=== PATIENT | female | born 1980 | race Caucasian/White ===

== ENCOUNTER 2017-03-19 06:13 | Emergency (ER) | payer BC ==
[~2017-03-19] VITALS: Ht 162.5 cm; Wt 117.9 kg
[~2017-03-19 06:13] MED LIST: AMOXICILLIN500 MG PO; ANAPROX275 MG PO; AUGMENTIN 875875 MG PO; BACTRIM DS 8001 TA1 PO; BACTROBAN2% TP; BIAXIN500 MG PO; CALCIUM 500 W/V1 TAB PO; CIPRO500 MG PO; CLARITIN10 MG PO; CYCLOBENZAPRINE10 MG PO; DIAZEPAM2 MG PO; DIFLUCAN150 MG PO; FE-TABS325 MG PO; IBUPROFEN600 MG PO; LIDEX0.05% T; MACROBID100 M1 PO; MOTRIN800 MG PO; NAPROSYN500 MG PO; PREDNICOT20 MG PO; PRENATAL1 TA4 PO; ROBAXIN500 MG PO; TRAMADOL HCL50 MG PO; ULTRAM50 MG PO; ZITHROMAX Z PA250 MG PO
[2017-03-19] MEDS ORDERED: ATARAX,VISTARIL50 MG PO (06:49)
[2017-03-19] MEDS ORDERED: PREDNISONE20 M1 PO (06:49)
== END 2017-03-19 06:53 | disposition home or self-care (01) ==
LOC: ED 06:13
DX: L25.5 Unspecified contact dermatitis due to plants, except food (principal)

== ENCOUNTER 2021-02-21 13:27 | Emergency (ER) | payer BC ==
[~2021-02-21] VITALS: Ht 160 cm; Wt 102.1 kg
[~2021-02-21 13:27] MED LIST changes: +ATARAX,VISTARIL50 MG PO; +PREDNISONE20 M1 PO
[2021-02-21 15:01] LABS: BASO % 0.3 % (0.0-1.0); EOS # 0.1 10*3/uL (0.0-0.4); EOS % 1.1 % (1.0-4.0); HEMATOCRIT 32.1 % (37.0-47.0); LYMPH # 1.9 10*3/uL (1.3-4.4); LYMPH % 20.6 % (27.0-41.0); MEAN CELL VOLUME 78.7 fl (81.0-99.0); MEAN CORPUSCULAR HGB CONC 29.3 g/dl (33.0-37.0); MONO # 0.5 10*3/uL (0.1-1.0); MONO % 5.3 % (3.0-9.0); NEUT # 6.6 10*3/uL (2.3-7.9); NEUT % 72.5 % (47.0-73.0); PLATELET COUNT AUTOMATED 349 10*3/uL (130-400); RED BLOOD COUNT 4.08 10*6/uL (4.10-5.10); RED CELL DISTRI WIDTH 16.8 % (0-14.5); WHITE BLOOD COUNT 9.2 10*3/uL (4.8-10.8)
[2021-02-21 15:14] LABS: ALBUMIN 3.3 gm/dl (3.1-4.5); ALKALINE PHOSPHATASE 82 U/L (45-117); BUN 9 mg/dl (7-24); CHLORIDE 106 mmol/L (98-107); CREATININE 0.81 mg/dL (0.55-1.02); POTASSIUM 3.5 mmol/L (3.5-5.1); SGOT/AST 10 IU/L (3-35); SGPT/ALT 18 U/L (12-78); SODIUM 138 mmol/L (136-145); TOTAL PROTEIN 7.8 gm/dL (6.4-8.2)
[2021-02-21 15:21] LABS: BETA-HCG, QUANT < 1.0 mIU/mL (1-3)
[2021-02-21] MEDS ORDERED: SLOW RELEASE I142 MG PO (17:02)
== END 2021-02-21 17:13 | disposition home or self-care (01) ==
LOC: ED 13:27
PROVIDERS: Physician Assistant
DX: N92.0 Excessive and frequent menstruation with regular cycle (principal); Z79.899 Other long term (current) drug therapy; Z98.890 Other specified postprocedural states

== ENCOUNTER → 2021-03-01 | Outpatient (CLI) | payer BC ==
[~2021-03-01] MED LIST changes: +SLOW RELEASE I142 MG PO
== END | disposition home or self-care (01) ==
LOC: US 15:00
PROVIDERS: ATTEND Obstetrics & Gynecology
DX: D25.1 Intramural leiomyoma of uterus (principal); R93.89 Abnormal findings on diagnostic imaging of other specified body structures; N88.8 Other specified noninflammatory disorders of cervix uteri; N83.202 Unspecified ovarian cyst, left side

== ENCOUNTER → 2021-05-04 | Outpatient (CLI) | payer BC | END | disposition home or self-care (01) | LOC: US 14:51 | PROVIDERS: ATTEND Obstetrics & Gynecology | DX: N83.201 Unspecified ovarian cyst, right side (principal); D25.9 Leiomyoma of uterus, unspecified ==

== ENCOUNTER → 2021-10-31 | Outpatient (CLI) | payer BC | END | disposition home or self-care (01) | LOC: US 15:50 | PROVIDERS: ATTEND Obstetrics & Gynecology | DX: D25.9 Leiomyoma of uterus, unspecified (principal); N83.201 Unspecified ovarian cyst, right side; N83.02 Follicular cyst of left ovary ==

== ENCOUNTER → 2021-11-22 | Outpatient (CLI) | payer BC | END | disposition home or self-care (01) | LOC: MAMMO 11-08 16:00 | PROVIDERS: ATTEND Obstetrics & Gynecology | DX: Z12.31 Encounter for screening mammogram for malignant neoplasm of breast (principal); N64.89 Other specified disorders of breast ==

== ENCOUNTER → 2023-04-09 | Outpatient (CLI) | payer BC | END | disposition home or self-care (01) | LOC: US 12:30 → MAMMO 14:00 | PROVIDERS: ATTEND Obstetrics & Gynecology | DX: Z12.31 Encounter for screening mammogram for malignant neoplasm of breast (principal); D25.9 Leiomyoma of uterus, unspecified ==

== ENCOUNTER 2023-07-28 21:25 | Emergency (ER) | payer BC ==
[~2023-07-28] VITALS: Ht 157.4 cm; Wt 107.0 kg
[2023-07-28] MEDS ORDERED: AMOX-CLAV 875-1 EACH PO (21:41)
== END 2023-07-28 22:07 | disposition home or self-care (01) ==
LOC: ED 21:25
DX: H66.92 Otitis media, unspecified, left ear (principal); J32.9 Chronic sinusitis, unspecified; Z98.890 Other specified postprocedural states

== ENCOUNTER → 2024-05-02 | Outpatient (CLI) | payer OTHER ==
[~2024-05-02] MED LIST changes: +AMOX-CLAV 875-1 EACH PO
[2024-05-02 08:42] LABS: BASO # 0.1 10*3/uL (0.0-0.1); EOS # 0.1 10*3/uL (0.0-0.4); EOS % 2.3 % (1.0-4.0); HEMATOCRIT 35.7 % (37.0-47.0); LYMPH # 1.5 10*3/uL (1.3-4.4); LYMPH % 24.1 % (27.0-41.0); MEAN CELL VOLUME 77.6 fl (81.0-99.0); MEAN CORPUSCULAR HGB 21.3 pg (27.0-31.0); MEAN CORPUSCULAR HGB CONC 27.5 g/dl (33.0-37.0); MEAN PLATELET VOLUME 9.2 fl (9.6-12.3); MONO # 0.6 10*3/uL (0.1-1.0); MONO % 9.9 % (3.0-9.0); NEUT # 3.9 10*3/uL (2.3-7.9); NEUT % 62.5 % (47.0-73.0); PLATELET COUNT AUTOMATED 344 10*3/uL (130-400); RED CELL DISTRI WIDTH 23.7 % (0-14.5); WHITE BLOOD COUNT 6.2 10*3/uL (4.8-10.8)
== END | disposition home or self-care (01) ==
LOC: LAB 08:16
PROVIDERS: ATTEND Registered Nurse
DX: E61.1 Iron deficiency (principal)